=== PATIENT | female | born 1950 | race Hispanic/Latino ===

== ENCOUNTER 2016-11-29 08:17 | Day surgery (SDC) | payer BC, MEDICARE ==
[2016-11-21 09:34] VITALS: BMI 27.6
[2016-11-29] MEDS ORDERED: Propofol 10 mg/ml Inj (20 ML) ONE ×3 (11:14→11:49)
[2016-11-29] MEDS ORDERED: Sodium Chloride 0.9% 1,000 ML IV SCH (11:15)
[2016-11-29] MEDS ORDERED: ePHEDrine 50 mg/ml Inj ONE (11:52)
[2016-11-29 14:34] VITALS: BP 112/72; PULSE 83; RESP 16; TEMP 98; O2SAT 98
== END 2016-11-29 14:16 | disposition home or self-care (01) ==
LOC: ENDO 08:17
PROVIDERS: ATTEND Internal Medicine Gastroenterology
DX: D12.3 Benign neoplasm of transverse colon (principal); K57.30 Diverticulosis of large intestine without perforation or abscess without bleeding; K64.4 Residual hemorrhoidal skin tags; K64.8 Other hemorrhoids; Q43.8 Other specified congenital malformations of intestine; Z86.010 Personal history of colon polyps; I10 Essential (primary) hypertension
CPT/HCPCS: 45380; 82948; 88305; J2001; J2704; J7040